=== PATIENT | male | born 2000 | race Asian ===

== ENCOUNTER 2021-11-23 16:41 | Emergency (ER) | payer OTHER, SELFPAY ==
[2021-11-23 16:50] VITALS: BP 150/78; PULSE 104; RESP 15; TEMP 36.6; O2SAT 99; BMI 20.7
--- NOTE | 2021-11-23 16:53 | DI.RAD.S_ITS ---
PROCEDURE: XR ANKLE RT MIN 3V INDICATIONS: Injury TECHNIQUE: 3 views of the ankle were acquired. COMPARISON: None. FINDINGS: Bones: No fractures or dislocations. Ankle mortise is normally aligned. No suspicious bony lesions. Soft tissues: No tibiotalar joint effusion. Achilles tendon appears normal. Lateral soft tissue swelling IMPRESSION: Soft tissue swelling without fracture or foreign body Approved by: Tim Carrion M.D. on 11/23/2021 at 17:25
--- NOTE | 2021-11-23 17:06 | ED_ITS ---
HPI - Extremity Injury (Lower) <SAM Avery - Last Filed: 11/23/21 18:32> General Chief Complaint: Extremity Injury, Lower Stated Complaint: fall with Rt. ankle pop Time Seen by Provider: 11/23/21 17:00 Source: patient Mode of arrival: EMS History of Present Illness HPI Narrative: 20-year-old nonsmoker male presents to the emergency department via EMS with right ankle pain. Patient reports he twisted his ankle while playing basketball approximately 1 hour ago and heard a pop. Visual swelling right lateral ankle. No obvious deformities. Patient reports that he was unable to bear weight immediately after the incident due to the pain. Patient denies a history of ankle injuries. Related Data Previous Rx's Medication Instructions Recorded ibuprofen 600 mg tablet 600 mg PO Q8H PRN ankle pain #30 11/23/21 tabs Allergies Allergy/AdvReac Type Severity Reaction Status Date / Time No Known Drug Allergies Allergy Verified 11/23/21 16:58 Review of Systems <SAM Avery - Last Filed: 11/23/21 18:32> Review of Systems Narrative: Narrative: GENERAL: Denies chills, fatigue, fever, sweats. HEENT: Denies sinus pain, ear pain, sore throat, difficulty swallowing, dizzine ss. RESPIRATORY: Denies dyspnea, cough, wheezing, sputum. CARDIOVASCULAR: Denies chest pain, palpitations, edema. GASTROINTESTINAL: Denies nausea, vomiting, abdominal pain, diarrhea, constipation. : Denies dysuria, frequency, incontinence, hematuria, urinary retention, flank pain. MUSCULOSKELETAL: Swelling of ankle and mild tingling sensation SKIN: Denies rash, skin lesions, or pruritis. NEUROLOGIC: Denies weakness, dizziness, headache, numbness. PSYCHIATRIC: No concerning psychosocial issues. Patient History <SAM Avery - Last Filed: 11/23/21 18:32> Social History Smoking Status: Unknown if ever smoked Smoking Status: Unknown if ever smoked alcohol intake frequency: holidays/special occasions only Substance Use Type: does not use Exam <SAM Avery - Last Filed: 11/23/21 18:32> Narrative Exam Narrative: Exam Narrative: GENERAL: This is a well-nourished, well-developed patient, in no acute distress HEAD: Atraumatic. Normocephalic. EYES: Pupils equal round and reactive. Extraocular motions intact. No injection or drainage. ENT: Nose without bleeding, purulent drainage. Airway patent. NECK: Trachea midline. No JVD or lymphadenopathy. Supple and nontender. CARDIOVASCULAR: Regular rate and rhythm, peripheral pulses intact, cap refill <2 sec. RESPIRATORY: Breath sounds equal and clear bilaterally. No wheezes, rales, or rhonchi. No cough. No increased respiratory effort. No accessory muscle use. GASTROINTESTINAL: Abdomen soft, non-tender, nondistended without guarding or rebound. No suprapubic pain. No hepato-splenomegaly, or palpable masses. EXTREMITIES: Swelling right lateral malleolus. Neurovascularly intact. NEURO: A&O x 3. SKIN: Warm, dry, no rashes or lesions noted. Initial Vital Signs Initial Vital Signs: Vital Signs Temperature 97.8 F 11/23/21 16:50 Pulse Rate 104 H 11/23/21 16:50 Respiratory Rate 15 11/23/21 16:50 Blood Pressure 150/78 H 11/23/21 16:50 Pulse Oximetry 99 11/23/21 16:50 Oxygen Delivery Method 11/23/21 16:50 Reviewed Extrem Other: ANKLE: There is swelling but no bruising or asymmetry. There is no tenderness to general palpation. Sensation grossly intact. There is no tenderness over the medial malleolus, proximal tibia/fibula. The anterior mortise is non-tender. Flexion and extension is intact. Unable to test for stability or laxity due to pain. The contralateral ankle exam is unremarkable. <Hillary Mcginnis DO - Last Filed: 11/26/21 17:42> Initial Vital Signs Initial Vital Signs: Vital Signs Temperature 97.8 F 11/23/21 16:50 Pulse Rate 104 H 11/23/21 16:50 Respiratory Rate 15 11/23/21 16:50 Blood Pressure 150/78 H 11/23/21 16:50 Pulse Oximetry 99 11/23/21 16:50 Oxygen Delivery Method 11/23/21 16:50 Procedures <SAM Avery - Last Filed: 11/23/21 18:32> Orthopedic Splinting/Casting Injury #1: Side: right Lower Extremity Injury Location: ankle Lower Extremity Immobilizer: boot orthosis Other Orthopedic Equipment: crutches Post splinting neuro exam: intact Post splinting vascular exam: intact Placed by: Nursing Course <SAM Avery - Last Filed: 11/23/21 18:32> Orders Ordered: ED Orders 11/23/21 16:53 XR ankle RT min 3V Stat Vital Signs Vital signs: Vital Signs - 8 hr 11/23/21 16:50 Temperature 97.8 F Pulse Rate 104 H Respiratory Rate 15 Blood Pressure 150/78 H Pulse Oximetry 99 Oxygen Delivery Method Room Air <Hillary Mcginnis DO - Last Filed: 11/26/21 17:42> Orders Ordered: ED Orders 11/23/21 16:53 XR ankle RT min 3V Stat Vital Signs Vital signs: Vital Signs - 8 hr 11/23/21 16:50 Temperature 97.8 F Pulse Rate 104 H Respiratory Rate 15 Blood Pressure 150/78 H Pulse Oximetry 99 Oxygen Delivery Method Room Air MDM - Extremity Injury (Lower) <SAM Avery - Last Filed: 11/23/21 18:32> Differential Diagnosis Differential diagnosis: Likely ankle sprain and strain; Unlikely ankle fracture Imaging Data Extremity x-ray #1: My Impression: Normal ankle Radiologist's Impression: XRay Report Signed Patient: Tanner Bocanegra MR#: [id number] : 2000 Acct:[id number] Age/Sex: 20 / M Date of Service: 11/23/21 Loc: ED Accession Number: [id number] ?? Procedure: XR ankle RT min 3V Ordering Provider: Hillary Mcginnis D.O. PROCEDURE:? XR ANKLE RT MIN 3V ? INDICATIONS:? Injury ? TECHNIQUE:? 3 views of the ankle were acquired.? ? COMPARISON:? None. ? FINDINGS:? ? Bones:? No fractures or dislocations.? Ankle mortise is normally aligned.? No suspicious bony lesions.? ? Soft tissues:? No tibiotalar joint effusion.? Achilles tendon appears normal.? Lateral soft tissue swelling ? ? IMPRESSION:? Soft tissue swelling without fracture or foreign body ? Approved by: Tim Carrion M.D. on 11/23/2021 at 17:25? MDM Narrative Medical decision making narrative: 28-year-old man brought to the emergency EMS for right ankle pain after rolling his ankle while playing basketball. X-ray was normal. Patient placed in walking boot and crutches for comfort. Recommended rice and NSAIDs. Discussed plan of care with patient, who is agreeable with course of action. Discharge Plan Departure Patient Disposition: Home Clinical Impression: Ankle sprain and strain Instructions: DI for Ankle Sprain Activity Restrictions/Additional Instructions: *You have been diagnosed with a right ankle sprain. Your x-ray was normal. I recommend rice: Rest (modified activity), along with ice, compression wrap/splint-immobilize as directed and elevation above heart. Tylenol or Ibuprofen for discomfort. You may take ibuprofen 600 mg 3 times a day with food for the next 3-5 days. For your comfort, we are placing you in a walking boot and crutches. Please make sure you use your ankle so that it does not get stiff. Please follow-up with your family doctor on Friday so that they are aware of what we did in the emergency department. *What to do: *Please continue to take your regular medications as directed. [x ] New medication prescriptions sent to your pharmacy: [facility] in [place]] [ ] New medication written as a paper prescription [ ] No new medications given *Please follow up with your primary care provider in 2-3 days, call for an appointment. Let them know you were seen in the Emergency Department and that we ask that you be seen in follow up. We will electronically transmit a record of today's note if your PCP is in our system *If you do not have a primary care provider please contact the [facility] Resource line at [phone]. They will ask some questions about your medical history and help get you set up with a doctor in the community. ? Return to ER if you should have any new, worsening or concerning symptoms, such as worsening pain, severe headache, confusion, chest pain, difficulty breathing, fever greater than 101 F, shaking chills, persistent vomiting to the point that you cannot drink fluids, or other new or worsening symptoms. Prescriptions: New ibuprofen 600 mg tablet 600 mg PO Q8H PRN (Reason: ankle pain) Qty: 30 0RF Referrals: Miscellaneous,Doctor, MD [Primary Care Provider] - Stand Alone Forms: Work Release Note Visit Report Forms: Patient Portal/API <Hillary Mcginnis DO - Last Filed: 07/11/22 17:42> Cosign ED Attending Cosprincessature Attestation: I was immediately available in the department for consultation. Documentation has been reviewed. I agree with assessment and plan.
[2021-11-23 18:30] VITALS: BP 136/76; PULSE 89; RESP 17; O2SAT 99
== END 2021-11-23 18:30 | disposition home or self-care (01) ==
PROVIDERS: Emergency Provider Registered Nurse
DX: S93.401A Sprain of unspecified ligament of right ankle, initial encounter (principal); S96.911A Strain of unspecified muscle and tendon at ankle and foot level, right foot, initial encounter; X50.1XXA Overexertion from prolonged static or awkward postures, initial encounter; Y93.67 Activity, basketball
CPT/HCPCS: 73610; 99282; 99283